=== PATIENT | female | born 1955 | race Caucasian/White ===

== ENCOUNTER 2022-01-01 08:53 | Emergency (ER) | payer MEDICARE, OTHER ==
[2022-01-01] MEDS ORDERED: PERCOCET 7.5/321 TAB PO (12:58)
== END 2022-01-01 13:30 | disposition home or self-care (01) ==
LOC: FER 08:53
DX: S42.202A Unspecified fracture of upper end of left humerus, initial encounter for closed fracture (principal); W10.9XXA Fall (on) (from) unspecified stairs and steps, initial encounter; Y92.89 Other specified places as the place of occurrence of the external cause
CPT/HCPCS: 73030

== ENCOUNTER 2022-04-25 16:21 | Emergency (ER) | payer MEDICARE, OTHER ==
[~2022-04-25 16:21] MED LIST: PERCOCET 7.5/321 TAB PO
[2022-04-25 17:09] LABS: BASOPHIL 0.2 % (0-2); EOSINOPHIL 0.7 % (0-7); HGB 11.6 g/dl (12.5-16.0); MCHC 31.4 g/dL (32.0-36.0); MCV 89.4 fL (78.0-100.0); MONOCYTE 7.3 % (0-12); MPV 9.3 fL (6.0-9.5); NEUTROPHIL 78.4 % (41-80); NRBC 0; PLT 289 K/uL (150-400); RBC 4.14 M/uL (4.20-5.40); WBC 8.4 K/uL (4.0-10.5)
[2022-04-25 17:20] LABS: INR 1.31 (0.9-1.2); PROTHROMBIN TIME 15.6 SECONDS (11.8-13.4)
== END 2022-04-25 19:04 | disposition home or self-care (01) ==
LOC: FER 16:21
PROVIDERS: Physician Assistant
DX: K06.8 Other specified disorders of gingiva and edentulous alveolar ridge (principal); R79.1 Abnormal coagulation profile; I10 Essential (primary) hypertension; I48.91 Unspecified atrial fibrillation; Z79.01 Long term (current) use of anticoagulants; Z79.899 Other long term (current) drug therapy
CPT/HCPCS: 36415; 85025; 85610; 85730; 99283